=== PATIENT | female | born 1985 | race Caucasian/White ===

== ENCOUNTER 2020-08-27 14:53 | Emergency (ER) | payer OTHER ==
[~2020-08-27 14:53] MED LIST: BENTYL 10MG CAP10 MG PO; ZOFRAN ODT 4 MG4 MG PO
[2020-08-27] MEDS ORDERED: Voltaren Gel 1 % TOP (15:33)
== END 2020-08-27 15:37 | disposition home or self-care (01) ==
LOC: ER1 14:53
DX: M77.11 Lateral epicondylitis, right elbow (principal); F17.210 Nicotine dependence, cigarettes, uncomplicated
CPT/HCPCS: 99283